=== PATIENT | female | born 1965 | race Caucasian/White ===

== ENCOUNTER → 2024-05-05 14:06 | Outpatient (REF) | payer OTHER, SELFPAY | LOC: DHSLP 14:06 | PROVIDERS: ATTENDING PHYSICIAN Internal Medicine Cardiovascular Disease; FAMILY PHYSICIAN Internal Medicine | DX: G47.33 Obstructive sleep apnea (adult) (pediatric) (principal) | CPT/HCPCS: 95800 ==